=== PATIENT | female | born 1955 | race Caucasian/White ===

== ENCOUNTER 2016-10-12 08:23 | Day surgery (SDC) | payer OTHER, MEDICAID ==
[2016-10-12] MEDS ORDERED: NS 500 ML IV 500 ML IV ONE (08:35)
[2016-10-12] MEDS ORDERED: TETRACAINE 0.5% OPHTH 1 DOSE AFFEYE ONE ×4 (08:40→10:48)
[2016-10-12] MEDS ORDERED: VIGAMOX 0.5% OPHTH 1 DOSE AFFEYE ONE ×3 (08:41→08:51)
[2016-10-12] MEDS ORDERED: PROLENSA OPHTH 1 DOSE AFFEYE ONE (08:52)
[2016-10-12] MEDS ORDERED: ALPHAGAN-P OPHTH 1 DOSE AFFEYE ONE (08:54)
[2016-10-12] MEDS ORDERED: MYDRIACIL OPHTH 1 DOSE AFFEYE ONE ×2 (08:55→09:00)
[2016-10-12] MEDS ORDERED: AK-DILATE 2.5% OPHTH 1 DOSE OP ONE ×2 (08:55→09:00)
[2016-10-12] MEDS ORDERED: CYCLOGYL 1% OPHTH 1 DOSE OP ONE ×2 (08:55→09:00)
[2016-10-12] MEDS ORDERED: DIPRIVAN VIAL ONE (09:41)
[2016-10-12] MEDS ORDERED: VERSED ONE (09:41)
[2016-10-12] MEDS ORDERED: BETADINE OPHTH SOLN 5% EACHEYE ONE (10:28)
[2016-10-12] MEDS ORDERED: VIGAMOX 0.5% OPHTH 1 DOSE RIGHTEYE ONE ×2 (10:40→11:01)
[2016-10-12] MEDS ORDERED: XYLOCAINE-MPF 1% IJ ONE ×2 (10:40→10:48)
[2016-10-12] MEDS ORDERED: DUOVISC IO ONE ×2 (10:40→10:48)
[2016-10-12] MEDS ORDERED: ADRENALINE CHL INJ IJ ONE ×2 (10:40→10:48)
[2016-10-12] MEDS ORDERED: BSS OPHTH (PLAIN) 500 ML IR ONE ×2 (10:42)
[2016-10-12 11:13] VITALS: BP 89/66
== END 2016-10-12 11:14 | disposition home or self-care (01) ==
LOC: SURG1 08:23
PROVIDERS: ATTEND Ophthalmology
PROC: 08DJ3ZZ Extraction of Right Lens, Percutaneous Approach (ICD-10-PCS; principal; 2016-10-12 09:45)
PROC: 08RJ3JZ Replacement of Right Lens with Synthetic Substitute, Percutaneous Approach (ICD-10-PCS; principal; 2016-10-12 09:45)
DX: H25.11 Age-related nuclear cataract, right eye (principal); H25.041 Posterior subcapsular polar age-related cataract, right eye
CPT/HCPCS: A4217; J0170; J2250; J3490

== ENCOUNTER 2016-10-19 08:33 | Day surgery (SDC) | payer OTHER, MEDICAID ==
[2016-10-19] MEDS ORDERED: NS 500 ML IV 500 ML IV ONE (08:52)
[2016-10-19] MEDS ORDERED: DUREZOL OPHTH 1 DOSE AFFEYE ONE (09:00)
[2016-10-19] MEDS ORDERED: TETRACAINE 0.5% OPHTH 1 DOSE AFFEYE ONE ×4 (09:00→12:01)
[2016-10-19] MEDS ORDERED: VIGAMOX 0.5% OPHTH 1 DOSE AFFEYE ONE ×3 (09:11→12:32)
[2016-10-19] MEDS ORDERED: PROLENSA OPHTH 1 DOSE AFFEYE ONE (09:12)
[2016-10-19] MEDS ORDERED: MYDRIACIL OPHTH 1 DOSE AFFEYE ONE ×3 (09:15→09:25)
[2016-10-19] MEDS ORDERED: AK-DILATE 2.5% OPHTH 1 DOSE OP ONE ×3 (09:15→09:25)
[2016-10-19] MEDS ORDERED: CYCLOGYL 1% OPHTH 1 DOSE OP ONE ×3 (09:15→09:25)
[2016-10-19] MEDS ORDERED: BETADINE OPHTH SOLN 5% EACHEYE ONE (12:01)
[2016-10-19] MEDS ORDERED: BSS OPHTH (PLAIN) 500 ML with VANCOMYCIN HCL 500 MG VIAL 25 MG, ADRENALINE CHL INJ 1 MG IR ONE ×3 (12:20)
[2016-10-19] MEDS ORDERED: XYLOCAINE-MPF 1% IJ ONE (12:20)
[2016-10-19] MEDS ORDERED: DUOVISC IO ONE (12:20)
[2016-10-19] MEDS ORDERED: ADRENALINE CHL INJ IJ ONE (12:20)
[2016-10-19] MEDS ORDERED: DIPRIVAN VIAL ONE (14:08)
[2016-10-19] MEDS ORDERED: VERSED ONE (14:08)
[2016-10-19 14:26] VITALS: BP 160/70
== END 2016-10-19 13:00 | disposition home or self-care (01) ==
LOC: SURG1 08:33
PROVIDERS: ATTEND Ophthalmology
PROC: 08RK3JZ Replacement of Left Lens with Synthetic Substitute, Percutaneous Approach (ICD-10-PCS; principal; 2016-10-19 16:00)
PROC: 08DK3ZZ Extraction of Left Lens, Percutaneous Approach (ICD-10-PCS; principal; 2016-10-19 16:00)
DX: H25.12 Age-related nuclear cataract, left eye (principal); H25.042 Posterior subcapsular polar age-related cataract, left eye
CPT/HCPCS: A4217; J0170; J2250; J3370; J3490